=== PATIENT | male | born 1990 | race African-American/Black ===

== ENCOUNTER 2018-08-29 00:05 | Emergency (ER) | payer SELFPAY ==
[~2018-08-29] VITALS: Ht 185.4 cm; Wt 93.0 kg
[2018-08-29] MEDS ORDERED: PREDNISONE 20MG TABLET PO ONE (00:45)
[2018-08-29] MEDS ORDERED: ALBUTEROL (0.083%) 2.5MG/3ML NEB HHN ONE (00:45)
[2018-08-29 02:04] VITALS: BP 121/81
== END 2018-08-29 02:00 | disposition home or self-care (01) ==
LOC: ER 00:05
DX: J45.901 Unspecified asthma with (acute) exacerbation (principal); F12.10 Cannabis abuse, uncomplicated
CPT/HCPCS: 99283; J7512; J7611